=== PATIENT | female | born 1975 | race Caucasian/White ===

== ENCOUNTER → 2024-03-24 12:57 | Outpatient (REF) | payer OTHER, SELFPAY | LOC: HWWDC 12:57 | PROVIDERS: ATTENDING PHYSICIAN Family Medicine | DX: Z12.31 Encounter for screening mammogram for malignant neoplasm of breast (principal) | CPT/HCPCS: 77063; 77067 ==

== ENCOUNTER → 2024-09-18 15:45 | Outpatient (REF) | payer OTHER, SELFPAY | LOC: HWRAD 15:45 | PROVIDERS: ATTENDING PHYSICIAN Internal Medicine | DX: G89.29 Other chronic pain (principal); M25.511 Pain in right shoulder | CPT/HCPCS: 73030 ==

== ENCOUNTER → 2025-03-26 11:48 | Outpatient (REF) | payer OTHER, SELFPAY | LOC: HWWDC 11:48 | PROVIDERS: ATTENDING PHYSICIAN Internal Medicine; REFERRING PHYSICIAN Obstetrics & Gynecology Gynecology | DX: Z12.31 Encounter for screening mammogram for malignant neoplasm of breast (principal) | CPT/HCPCS: 77063; 77067 ==